=== PATIENT | female | born 1985 | race Hispanic/Latino ===

== ENCOUNTER 2020-06-05 21:14 | Emergency (ER) | payer MEDICAID ==
[2020-06-05] MEDS ORDERED: Sodium Chloride 0.9% 1,000 ML IV ONE (21:33)
--- NOTE | 2020-06-05 22:06 | EDM.PDOC ---
ED HPI GENERAL MEDICAL PROBLEM - General Chief Complaint: General Stated Complaint: MEDICAL CLEARANCE Time Seen by Provider: 06/05/20 21:16 - History of Present Illness INITIAL COMMENTS - FREE TEXT/NARRATIVE: HISTORY AND PHYSICAL: History of present illness: There is a 34-year-old female with history significant for hypertension who presents ER today for medical clearance by law enforcement secondary to alcohol intoxication. Patient denies any symptoms or complaints at this time. Patient denies any recent fevers, shakes, chills, nausea, vomiting, diarrhea, dysuria, frequency, urgency, chest pain, shortness of breath. Patient denies any history of alcohol withdrawal in the past. Patient denies any abdominal pain. Patient denies any trauma or injuries. Patient has any pain to her upper or lower extremities. Review of systems: As per history of present illness and below otherwise all systems reviewed and negative. Past medical history: As per history of present illness and as reviewed below otherwise noncon tributory. Surgical history: As per history of present illness and as reviewed below otherwise noncontributory. Social history: No reported history of drug or alcohol abuse. Family history: As per history of present illness and as reviewed below otherwise noncontributory. Physical exam: This patient was seen and evaluated during the 2019 SARS-CoV-2 novel coronavirus pandemic period. Community viral transmission is ongoing at time of this encounter and the emergency department is operating under pandemic response procedures. Constitutional: Patient is oriented to person, place, and time. Appears well- developed and well-nourished. No distress. HEENT: Moist mucous membranes Head: Normocephalic and atraumatic Eyes: Right eye exhibits no discharge. Left eye exhibits no discharge. No scleral icterus Neck: Normal range of motion. No tracheal deviation present. Cardiovascular: Normal rate and regular rhythm. Pulmonary: Effort normal, no respiratory distress. Abdominal: No distention Musculoskeletal: Normal range of motion Neurologic: Alert and oriented to person, place and time. Skin: [place], warm and dry. Psychiatric: Normal mood and affect. Behavior is normal. Judgment and thought content normal. Nursing note and vital signs have been reviewed Patient's ER physical exam is significant for patient being alert awake and orient x3. Patient is appropriate in the ED. Patient's vital signs are stable. Patient with a heart rate of 92 with a pulse ox of 99% on room air. Assessment and plan: Is a 34-year-old female who presents to the ER today for medical clearance by law enforcement. Patient vital signs have improved in the ED and her heart rate currently is 95 bpm. Patient is alert awake and orient x3. Patient is extremely cooperative. Patient admits to drinking excessive amount of alcohol today. Patient denies any drugs. At this time, patient has no complaints and is requesting to be discharged with here so that she can resume with her law enforcement issues. Reassessment at the time of disposition demonstrates that the patient is in no acute distress. The patient has remained stable throughout the entire ED visit and is without objective evidence for acute process requiring urgent intervention or hospitalization. The patient is stable for discharge, counseling is provided as documented above, discussed symptomatic treatment and specific conditions for return. I have spoken with the patient/caregiver and discussed todays findings, in addition to providing specific details for the plan of care. Questions are answered and there is agreement with the plan. Definitive disposition and diagnosis as appropriate pending reevaluation and review of above. - Related Data Allergies Allergy/AdvReac Type Severity Reaction Status Date / Time No Known Allergies Allergy Verified 06/05/20 21:22 Home Meds: Home Meds clonazePAM [Clonazepam] 0.5 mg PO DAILY 06/05/20 [History] Past Medical History - Past Health History Medical/Surgical History: Denies Medical/Surgical History - Infectious Disease History Infectious Disease History: Reports: None Social & Family History - Tobacco Use Tobacco Use Status *Q: Never Tobacco User - Caffeine Use Caffeine Use: Reports: None - Recreational Drug Use Recreational Drug Use: No ED ROS GENERAL - Review of Systems Review Of Systems: See Below ED EXAM, GENERAL - Physical Exam Exam: See Below Course - Vital Signs Last Recorded V/S: Last Vital Signs Temp 98 F 06/05/20 21:23 Pulse 115 H 06/05/20 21:23 Resp 16 06/05/20 21:23 BP 111/71 06/05/20 21:23 Pulse Ox 95 06/05/20 21:23 - Orders/Labs/Meds Orders: Active Orders 24 hr Category Date Time Status EKG Documentation Completion [RC] STAT Care 06/05/20 21:34 Active CBC WITH AUTO DIFF [HEME] Stat Lab 06/05/20 21:33 Ordered COMPREHENSIVE METABOLIC PN,CMP [CHEM] Stat Lab 03/26/21 21:33 Ordered UA RFX ABHIJIT AND CULT IF INDIC [URIN] Stat Lab 06/05/20 21:33 Ordered Sodium Chloride 0.9% [Normal Saline] 1,000 ml Med 06/05/20 21:33 Active IV BOLUS Medication Orders Sodium Chloride (Normal Saline) 1,000 mls @ 999 mls/hr IV BOLUS ONE Stop: 06/05/20 22:33 Meds: Medications Generic Name Dose Route Start Last Admin Trade Name Vidhi PRN Reason Stop Dose Admin Sodium Chloride 1,000 mls @ 999 mls/hr 06/05/20 21:33 Normal Saline IV 06/05/20 22:33 BOLUS ONE Departure - Departure Time of Disposition: 22:04 Disposition: Home, Self-Care 01 Condition: Good Clinical Impression: Medical clearance for incarceration, Alcohol use - Discharge Information Instructions: Medical Screening Exam, Alcohol Use Disorder Referrals: PCP,None [Primary Care Provider] - Additional Instructions: Your seen and evaluated in ER today for medical clearance by EMS. Please notify the [facility] staff if you develop any new complaints. The following information is given to patients seen in the emergency department who are being discharged to home. This information is to outline your options for follow-up care. We provide all patients seen in our emergency department with a follow-up referral. The need for follow-up, as well as the timing and circumstances, are variable depending upon the specifics of your emergency department visit. If you don't have a primary care physician on staff, we will provide you with a referral. We always advise you to contact your personal physician following an emergency department visit to inform them of the circumstance of the visit and for follow-up with them and/or the need for any referrals to a consulting specialist. The emergency department will also refer you to a specialist when appropriate. This referral assures that you have the opportunity for follow-up care with a specialist. All of these measure are taken in an effort to provide you with optimal care, which includes your follow-up. Under all circumstances we always encourage you to contact your private physician who remains a resource for coordinating your care. When calling for follow-up care, please make the office aware that this follow-up is from your recent emergency room visit. If for any reason you are refused follow-up, please contact the [facility] Emergency Department at and asked to speak to the emergency department charge nurse. [facility] [address] [place] [address] [id number] [address] [address] Sepsis Event Note (ED) - Evaluation Sepsis Screening Result: No Definite Risk - Focused Exam Vital Signs: Vital Signs Temp Pulse Resp BP Pulse Ox 06/05/20 21:23 98 F 115 H 16 111/71 95
== END 2020-06-05 22:17 ==
LOC: MW.ED 21:14
DX: Z13.9 Encounter for screening, unspecified (principal)
CPT/HCPCS: 99282; 99283-25

== ENCOUNTER 2021-07-17 14:14 | Emergency (ER) | payer SELFPAY | END 2021-07-17 15:29 | disposition home or self-care (01) | LOC: MW.ED 14:14 | DX: M79.671 Pain in right foot (principal); M79.672 Pain in left foot; I10 Essential (primary) hypertension; E66.9 Obesity, unspecified; Z68.41 Body mass index [BMI] 40.0-44.9, adult; Z79.899 Other long term (current) drug therapy | CPT/HCPCS: 99282; 99283 ==

== ENCOUNTER 2021-07-31 13:11 | Emergency (ER) | payer MEDICAID | END 2021-07-31 13:16 | LOC: MW.ED 13:11 | DX: Z02.89 Encounter for other administrative examinations (principal); I10 Essential (primary) hypertension; E66.9 Obesity, unspecified; Z68.41 Body mass index [BMI] 40.0-44.9, adult; Z79.899 Other long term (current) drug therapy | CPT/HCPCS: 99282; 99283 ==

== ENCOUNTER 2021-08-03 16:41 | Emergency (ER) | payer MEDICAID ==
[2021-08-03] MEDS ORDERED: Alum Hydro/Mag Hydro/Simeth XS 15 ML, Lidocaine 2% 5 ML PO ONE ×2 (17:38)
== END 2021-08-03 18:00 ==
LOC: MW.ED 16:41
DX: Z02.89 Encounter for other administrative examinations (principal); F41.9 Anxiety disorder, unspecified; F32.9 Major depressive disorder, single episode, unspecified; I10 Essential (primary) hypertension; E66.9 Obesity, unspecified; Z68.31 Body mass index [BMI] 31.0-31.9, adult; Z79.899 Other long term (current) drug therapy
CPT/HCPCS: 93005; 99283; A9270

== ENCOUNTER 2021-10-30 10:24 | Emergency (ER) | payer MEDICAID ==
[2021-10-30] MEDS ORDERED: Ketorolac 60 MG/2 ML SDV IM ONE (10:58)
== END 2021-10-30 17:43 | disposition home or self-care (01) ==
LOC: MW.ED 10:24
DX: G89.29 Other chronic pain (principal); M54.2 Cervicalgia; M54.6 Pain in thoracic spine; Z76.0 Encounter for issue of repeat prescription; I10 Essential (primary) hypertension; F41.9 Anxiety disorder, unspecified; F32.A Depression, unspecified; E66.9 Obesity, unspecified; Z68.32 Body mass index [BMI] 32.0-32.9, adult
CPT/HCPCS: 72040; 96372; 99283; J1885

== ENCOUNTER 2021-11-12 16:09 | Emergency (ER) | payer MEDICAID ==
[2021-11-12] MEDS ORDERED: LORazepam 2 MG/ML SDV IVPUSH ONE (16:51)
[2021-11-12] MEDS ORDERED: Sodium Chloride 0.9% 1,000 ML IV ONE (16:52)
[2021-11-12 17:07] LABS: CARBON DIOXIDE,CO2 23.9 mmol/L (21.0-32.0)
== END 2021-11-12 21:20 | disposition home or self-care (01) ==
LOC: MW.ED 16:09
DX: R07.9 Chest pain, unspecified (principal); Z76.0 Encounter for issue of repeat prescription; I10 Essential (primary) hypertension; E78.00 Pure hypercholesterolemia, unspecified; F41.9 Anxiety disorder, unspecified; F32.A Depression, unspecified; E66.9 Obesity, unspecified; Z68.37 Body mass index [BMI] 37.0-37.9, adult; Z79.899 Other long term (current) drug therapy
CPT/HCPCS: 36415; 71045; 80053; 81001; 81025; 84443; 84484; 85025; 93005; 96361; 96374; 99285; J2060; J7030

== ENCOUNTER 2021-12-08 09:35 | Emergency (ER) | payer MEDICAID ==
[2021-12-08] MEDS ORDERED: ClonazePAM 0.5 MG Tab PO ONE (10:20)
== END 2021-12-08 10:22 | disposition home or self-care (01) ==
LOC: MW.ED 09:35
DX: F41.9 Anxiety disorder, unspecified (principal); I10 Essential (primary) hypertension; Z76.0 Encounter for issue of repeat prescription; E66.9 Obesity, unspecified; Z68.31 Body mass index [BMI] 31.0-31.9, adult; Z79.899 Other long term (current) drug therapy
CPT/HCPCS: 99281; A9270; 99282

== ENCOUNTER 2022-01-06 13:08 | Emergency (ER) | payer MEDICAID ==
[2022-01-06] MEDS ORDERED: ClonazePAM 0.5 MG Tab PO ONE (14:19)
== END 2022-01-06 15:26 | disposition home or self-care (01) ==
LOC: MW.ED 13:08
DX: F41.9 Anxiety disorder, unspecified (principal); I10 Essential (primary) hypertension; E66.9 Obesity, unspecified; Z68.30 Body mass index [BMI] 30.0-30.9, adult
CPT/HCPCS: 99283; A9270

== ENCOUNTER 2022-02-21 17:25 | Emergency (ER) | payer MEDICAID ==
[2022-02-21] MEDS ORDERED: LORazepam 1 MG Tab PO ONE (18:01)
[2022-02-21 18:39] LABS: CARBON DIOXIDE,CO2 22.9 mmol/L (21.0-32.0); POTASSIUM,K 4.2 mmol/L (3.5-5.1)
[2022-02-21 18:48] LABS: CORONAVIRUS COVID-19 NAA NEGATIVE (NEGATIVE); INFLUENZA A NAA NEGATIVE (NEGATIVE); INFLUENZA B NAA NEGATIVE (NEGATIVE); RESPIRATORY SYNCYTIAL VIR NAA NEGATIVE (NEGATIVE)
== END 2022-02-21 19:24 | disposition home or self-care (01) ==
LOC: MW.ED 17:25
DX: R07.89 Other chest pain (principal); F41.9 Anxiety disorder, unspecified; D72.829 Elevated white blood cell count, unspecified; Z76.0 Encounter for issue of repeat prescription; Z20.822 Contact with and (suspected) exposure to COVID-19
CPT/HCPCS: 0241U; 36415; 71045; 80053; 84484; 85025; 99285; A9270

== ENCOUNTER 2022-02-25 12:46 | Emergency (ER) | payer MEDICAID ==
[2022-02-25] MEDS ORDERED: LORazepam 1 MG Tab PO ONE (13:56)
== END 2022-02-25 14:33 | disposition home or self-care (01) ==
LOC: MW.ED 12:46
DX: Z76.5 Malingerer [conscious simulation] (principal); I10 Essential (primary) hypertension; E66.9 Obesity, unspecified; Z68.32 Body mass index [BMI] 32.0-32.9, adult
CPT/HCPCS: 99282; A9270

== ENCOUNTER 2022-03-12 07:43 | Emergency (ER) | payer MEDICAID ==
[2022-03-12] MEDS ORDERED: Sodium Chloride 0.9% 10 ML Syringe FLUSH PRN (08:34)
[2022-03-12] MEDS ORDERED: Sodium Chloride 0.9% 2.5 ML Syringe FLUSH PRN (08:34)
[2022-03-12] MEDS ORDERED: Ketorolac 30 MG/ML SDV IVPUSH ONE (09:19)
[2022-03-12 09:31] LABS: CARBON DIOXIDE,CO2 27.5 mmol/L (21.0-32.0); POTASSIUM,K 4.4 mmol/L (3.5-5.1)
== END 2022-03-12 09:58 | disposition home or self-care (01) ==
LOC: MW.ED 07:43
DX: N12 Tubulo-interstitial nephritis, not specified as acute or chronic (principal); I10 Essential (primary) hypertension; E66.9 Obesity, unspecified; Z68.37 Body mass index [BMI] 37.0-37.9, adult; Z79.899 Other long term (current) drug therapy
CPT/HCPCS: 74176; 80053; 81001; 81025; 83690; 85025; 96374; 99284; J1885

== ENCOUNTER 2022-04-01 13:10 | Emergency (ER) | payer MEDICAID ==
[2022-04-01] MEDS ORDERED: LORazepam 1 MG Tab PO ONE (13:11)
[2022-04-01 14:18] LABS: CARBON DIOXIDE,CO2 22.8 mmol/L (21.0-32.0); POTASSIUM,K 3.7 mmol/L (3.5-5.1)
== END 2022-04-01 15:20 | disposition home or self-care (01) ==
LOC: MW.ED 13:10
DX: R07.9 Chest pain, unspecified (principal); F41.9 Anxiety disorder, unspecified; I10 Essential (primary) hypertension; Z76.0 Encounter for issue of repeat prescription; E66.9 Obesity, unspecified; Z68.30 Body mass index [BMI] 30.0-30.9, adult; Z79.899 Other long term (current) drug therapy
CPT/HCPCS: 36415; 71045; 80053; 84443; 84484; 84702; 85025; 93005; 99285; A9270; 93010; 99283

== ENCOUNTER 2022-04-15 19:18 | Emergency (ER) | payer MEDICAID | END 2022-04-15 20:25 | LOC: MW.ED 19:18 | DX: F41.9 Anxiety disorder, unspecified (principal); G89.29 Other chronic pain; M54.2 Cervicalgia; M54.9 Dorsalgia, unspecified; I10 Essential (primary) hypertension; J45.909 Unspecified asthma, uncomplicated; E66.9 Obesity, unspecified; Z68.37 Body mass index [BMI] 37.0-37.9, adult; Z79.899 Other long term (current) drug therapy | CPT/HCPCS: 99283 ==

== ENCOUNTER 2022-04-29 17:44 | Emergency (ER) | payer MEDICAID ==
[2022-04-29] MEDS ORDERED: LORazepam 2 MG/ML SDV IVPUSH ONE (17:47)
[2022-04-29 18:27] LABS: BLOOD UREA NITROGEN,BUN 8 mg/dL (7.0-18.0); CARBON DIOXIDE,CO2 26.8 mmol/L (21.0-32.0); CHLORIDE,CL 103 mmol/L (98-107); GLUCOSE RANDOM 107 mg/dL (74-106); POTASSIUM,K 3.5 mmol/L (3.5-5.1); SODIUM,NA 138 mmol/L (136-145)
[2022-04-29 18:28] LABS: ESTIMATED GFR 86 mL/min (>60)
== END 2022-04-29 18:47 | disposition home or self-care (01) ==
LOC: MW.ED 17:44
DX: F41.9 Anxiety disorder, unspecified (principal); I10 Essential (primary) hypertension; E66.9 Obesity, unspecified; Z68.37 Body mass index [BMI] 37.0-37.9, adult
CPT/HCPCS: 36415; 71045; 80053; 80307; 84484; 84703; 85025; 93005; 96374; 99284; J2060; 93010

== ENCOUNTER 2022-05-21 14:51 | Emergency (ER) | payer MEDICAID ==
[2022-05-21] MEDS ORDERED: ClonazePAM 0.5 MG Tab PO STA (17:49)
== END 2022-05-21 18:17 | disposition home or self-care (01) ==
LOC: MW.ED 14:51
DX: F41.9 Anxiety disorder, unspecified (principal); I10 Essential (primary) hypertension; E66.9 Obesity, unspecified; Z76.0 Encounter for issue of repeat prescription; Z68.31 Body mass index [BMI] 31.0-31.9, adult; Z72.0 Tobacco use
CPT/HCPCS: 99283; A9270

== ENCOUNTER 2022-05-23 15:36 | Emergency (ER) | payer MEDICAID | END 2022-05-23 19:39 | disposition left against medical advice (07) | LOC: MW.ED 15:36 | DX: Z53.21 Procedure and treatment not carried out due to patient leaving prior to being seen by health care provider (principal) ==

== ENCOUNTER 2022-05-25 00:58 | Emergency (ER) | payer MEDICAID ==
[2022-05-25] MEDS ORDERED: LORazepam 1 MG Tab ONE (03:21)
[2022-05-25] MEDS ORDERED: LORazepam 1 MG Tab PO STA (06:19)
[2022-05-25 09:51] LABS: BLOOD UREA NITROGEN,BUN 8 mg/dL (7.0-18.0); CARBON DIOXIDE,CO2 22.7 mmol/L (21.0-32.0); CHLORIDE,CL 107 mmol/L (98-107); ESTIMATED GFR 116 mL/min (>60); GLUCOSE RANDOM 101 mg/dL (74-106); POTASSIUM,K 4.1 mmol/L (3.5-5.1); SODIUM,NA 140 mmol/L (136-145)
== END 2022-05-25 06:23 | disposition home or self-care (01) ==
LOC: MW.ED 00:58
DX: F41.9 Anxiety disorder, unspecified (principal); D72.829 Elevated white blood cell count, unspecified; I10 Essential (primary) hypertension; E66.9 Obesity, unspecified; Z68.38 Body mass index [BMI] 38.0-38.9, adult
CPT/HCPCS: 36415; 71045; 80053; 84484; 85025; 99284; A9270; 93010; 99283